=== PATIENT | male | born 1975 | race Caucasian/White ===

== ENCOUNTER 2020-01-08 08:41 | Emergency (ER) | payer BC ==
[2020-01-08] MEDS ORDERED: diphenhydrAMINE 50 MG/ML SDV IVPUSH ONE (08:56)
--- NOTE | 2020-01-08 08:58 | EDM.PDOC ---
<Freddie Mcduffie - Last Filed: 01/08/20 09:40> ED HPI GENERAL MEDICAL PROBLEM - General Chief Complaint: Allergic Reaction Stated Complaint: PT CAME FROM CLINIC Time Seen by Provider: 01/08/20 08:57 - Related Data Allergies Allergy/AdvReac Type Severity Reaction Status Date / Time No Known Allergies Allergy Verified 01/08/20 08:47 Home Meds: Home Meds methylPREDNISolone [Medrol Dose Pack] 4 mg PO DAILY 5 Days #1 dospk 01/08/20 [Rx] Departure - Departure Disposition: Home, Self-Care 01 Clinical Impression: Allergic reaction - Discharge Information Prescriptions: methylPREDNISolone [Medrol Dose Pack] 4 mg PO DAILY 5 Days #1 dospk Instructions: Hives Forms: ED Department Discharge Additional Instructions: Advised to take Benadryl every 6-hours as needed for itch and rash Advised to return to ED if not improving or changes in breathing develop The following information is given to patients seen in the emergency department who are being discharged to home. This information is to outline your options for follow-up care. We provide all patients seen in our emergency department with a follow-up referral. The need for follow-up, as well as the timing and circumstances, are variable depending upon the specifics of your emergency department visit. If you don't have a primary care physician on staff, we will provide you with a referral. We always advise you to contact your personal physician following an emergency department visit to inform them of the circumstance of the visit and for follow-up with them and/or the need for any referrals to a consulting specialist. The emergency department will also refer you to a specialist when appropriate. This referral assures that you have the opportunity for follow-up care with a specialist. All of these measure are taken in an effort to provide you with optimal care, which includes your follow-up. Under all circumstances we always encourage you to contact your private physician who remains a resource for coordinating your care. When calling for follow-up care, please make the office aware that this follow-up is from your recent emergency room visit. If for any reason you are refused follow-up, please contact the [facility] Emergency Department at and asked to speak to the emergency department charge nurse. If you do not have a primary care doctor, please follow up with the clinics below within 3-5 days. [facility] - Primary Care [address] [place] [address] [facility] [address] [place] [id number] <Jeannine Nobles - Last Filed: 01/08/20 09:43> ED HPI GENERAL MEDICAL PROBLEM - General Source of Information: Reports: Patient History Limitations: Reports: No Limitations - History of Present Illness INITIAL COMMENTS - FREE TEXT/NARRATIVE: Patient is a 44-year-old male with no significant past medical history except for allergy to bee stings presenting today with worsening generalized pruritus, swelling of both hands x5 days after having been stung by bee 8 days prior. Patient did take 50 mg of Benadryl yesterday with minimal relief. Denies any problems breathing, chest pain, palpitations. Denies any pain, mentions pruritus minimally improved with Benadryl. Endorses a rash right forearm and right lower back. Patient was stung in the right flank. Denies any retained arthropod pieces. Left significant allergic reaction to bee sting was in his teens. Patient otherwise denies any other significant symptoms and or concerns. Generalized Pain Score (Numeric/FACES): 5 Past Medical History - Past Health History Medical/Surgical History: Denies Medical/Surgical History Cardiovascular History: Reports: None Respiratory History: Reports: None Gastrointestinal History: Reports: None Genitourinary History: Reports: None Neurological History: Reports: None Psychiatric History: Reports: None Endocrine/Metabolic History: Reports: None Hematologic History: Reports: None Immunologic History: Reports: None Oncologic (Cancer) History: Reports: None Dermatologic History: Reports: None - Infectious Disease History Infectious Disease History: Reports: Chicken Pox - Past Surgical History Head Surgeries/Procedures: Reports: None HEENT Surgical History: Reports: Oral Surgery Musculoskeletal Surgical History: Reports: Other (See Below) Other Musculoskeletal Surgeries/Procedures:: R 4th digit sx Social & Family History - Family History Family Medical History: Noncontributory - Tobacco Use Smoking Status *Q: Former Smoker Used Tobacco, but Quit: Yes Month/Year Tobacco Last Used: 2019 - Caffeine Use Caffeine Use: Reports: Coffee - Recreational Drug Use Recreational Drug Use: No - Living Situation & Occupation Living situation: Reports: , with Family Occupation: Employed ED ROS ALLERGIC REACTION - Review of Systems Review Of Systems: See Below Constitutional: Reports: No Symptoms HEENT: Reports: No Symptoms Respiratory: Denies: Shortness of Breath, Cough Cardiovascular: Denies: Chest Pain, Dyspnea on Exertion GI/Abdominal: Reports: No Symptoms. Denies: Constipation, Diarrhea : Reports: No Symptoms Musculoskeletal: Reports: No Symptoms Skin: Reports: Pruritis, Rash, Urticaria Neurological: Reports: No Symptoms. Denies: Confusion, Dizziness, Headache Psychiatric: Reports: No Symptoms Immunologic: Reports: Anaphylaxis ED EXAM GENERAL NO PERIP PULSE - Physical Exam Exam: See Below Exam Limited By: No Limitations General Appearance: Alert, No Apparent Distress Ears: Normal External Exam, Normal Canal, Hearing Grossly Normal Nose: Normal Inspection Throat/Mouth: Normal Inspection, Normal Oropharynx, No Airway Compromise, Other (hypertrophic tonsils; no airway compromise however ) Head: Atraumatic, Normocephalic Neck: Supple, Non-Tender, Full Range of Motion Respiratory/Chest: No Respiratory Distress, Lungs Clear, Normal Breath Sounds, N o Accessory Muscle Use. No: Respiratory Distress Cardiovascular: Regular Rate, Rhythm GI/Abdominal: Soft, Non-Tender Rectal (Males) Exam: Normal Exam Back Exam: Full Range of Motion Extremities: Other (moderate edema right/left hands; FROM ; non-tender...) Neurological: Alert, Oriented, Normal Cognition Psychiatric: Normal Affect, Normal Mood Skin Exam: Other (+uritcarial type rash noted over right forearm, right flank and lower back, posterior legs, buttocks. no rash noted on face. mild redness at base of neck ) Course - Vital Signs Last Recorded V/S: Last Vital Signs Temp 97.4 F 01/08/20 08:45 Pulse 78 01/08/20 09:13 Resp 20 01/08/20 09:13 BP 133/81 01/08/20 09:13 Pulse Ox 95 01/08/20 09:13 - Orders/Labs/Meds Meds: Medications Discontinued Medications Generic Name Dose Route Start Last Admin Trade Name Freq PRN Reason Stop Dose Admin Diphenhydramine HCl 50 mg 01/08/20 08:56 01/08/20 09:09 Benadryl IVPUSH 01/08/20 08:57 50 mg ONETIME ONE Administration Methylprednisolone Sodium Succinate 125 mg 01/08/20 09:00 01/08/20 09:09 Solu-Medrol IVPUSH 01/08/20 09:01 125 mg ONETIME ONE Administration - Re-Assessments/Exams Free Text/Narrative Re-Assessment/Exam: Reassessed at bedside: endorsed improved pruritus. Mentating well, respirating well, no wheezing and or over airway compromise appreciated 01/08/20 09:09 01/08/20 09:10 01/08/20 09:25 Free Text/Narrative Re-Assessment/Exam: Based off of H&P: hx. of allergy to bee stings; no other inciting factor appreciated . no other significant PMH. Breathing and respiratory status appropriate. Vitals stable; o2 sats appropriate No airway compromise appreciated:able to speak in full sentences and A&OX3 Urticarial type lesions noted. No retained FB/arthropod parts visualized 01/08/20 09:14 Departure - Departure Time of Disposition: 09:33 - Discharge Information *PRESCRIPTION DRUG MONITORING PROGRAM REVIEWED*: No *COPY OF PRESCRIPTION DRUG MONITORING REPORT IN PATIENT SYD: No Sepsis Event Note (ED) - Evaluation Sepsis Screening Result: No Definite Risk - Focused Exam Vital Signs: Vital Signs Temp Pulse Resp BP Pulse Ox 01/08/20 09:13 78 20 133/81 95 01/08/20 08:45 97.4 F 92 20 135/81 95
[2020-01-08] MEDS ORDERED: methylPREDNISolone Sodium Succinate 125 MG/2 ML SDV IVPUSH ONE (09:00)
[2020-01-08 09:14] VITALS: BP 133/81; PULSE 78
== END 2020-01-08 09:47 | disposition home or self-care (01) ==
LOC: MW.ED 08:41
DX: L50.0 Allergic urticaria (principal); J35.1 Hypertrophy of tonsils; Z87.891 Personal history of nicotine dependence; Z98.890 Other specified postprocedural states; Z79.899 Other long term (current) drug therapy
CPT/HCPCS: 96374; 96375; 99283; J1200; J2930; 99282

== ENCOUNTER 2023-06-15 09:36 | Emergency (ER) | payer BC ==
[2023-06-15 09:50] VITALS: PULSE 107
[2023-06-15] MEDS ORDERED: Ketorolac 30 MG/ML SDV IVPUSH ONE (10:08)
[2023-06-15] MEDS ORDERED: Sodium Chloride 0.9% 1,000 ML IV ONE (10:08)
[2023-06-15] MEDS ORDERED: Alum Hydro/Mag Hydro/Simeth XS 15 ML, Lidocaine 2% 5 ML PO ONE ×2 (10:08)
[2023-06-15] MEDS ORDERED: Ondansetron 4 MG/2 ML SDV IVPUSH ONE (10:08)
[2023-06-15 10:49] LABS: CORONAVIRUS COVID-19 NAA POSITIVE (NEGATIVE); INFLUENZA A NAA NEGATIVE (NEGATIVE); INFLUENZA B NAA NEGATIVE (NEGATIVE); RESPIRATORY SYNCYTIAL VIR NAA NEGATIVE (NEGATIVE)
[2023-06-15 10:53] LABS: APPEARANCE,URINE CLEAR; BILIRUBIN,URINE NEGATIVE (NEGATIVE); COLOR,URINE YELLOW; GLUCOSE,URINE NEGATIVE (NEGATIVE); KETONES,URINE NEGATIVE (NEGATIVE); LEUKOCYTE ESTERASE,URINE NEGATIVE (NEGATIVE); NITRITE,URINE NEGATIVE (NEGATIVE); OCCULT BLOOD,URINE TRACE-INTACT (NEGATIVE); PROTEIN,URINE TRACE mg/dL (NEGATIVE); UROBILINOGEN,URINE 0.2 EU/dL (<2.0)
[2023-06-15 11:05] LABS: RBC,URINE 0-1 (0-2/HPF); WBC,URINE 0-1 (0-5/HPF)
[2023-06-15 11:06] LABS: BACTERIA,URINE NOT SEEN (NEGATIVE); EPITHELIAL CELLS,URINE RARE (NONE-FEW)
[2023-06-15 11:19] LABS: BASOPHILS ABSOLUTE AUTO 0.02 K/uL (0.00-0.20); BASOPHILS PERCENT AUTO 0.2 % (0.0-1.0); EOSINOPHILS ABSOLUTE AUTO 0.05 K/uL (0.00-0.45); EOSINOPHILS PERCENT AUTO 0.5 % (0.0-6.0); HEMATOCRIT 50.3 % (42.0-52.0); HEMOGLOBIN 16.7 g/dL (14.0-18.0); IMMATURE GRAN ABSOLUTE AUTO 0.02 K/uL (0.00-0.05); IMMATURE GRAN PERCENT AUTO 0.2 % (0.0-0.4); LYMPHOCYTES ABSOLUTE AUTO 0.28 K/uL (1.00-4.80); LYMPHOCYTES PERCENT AUTO 2.6 % (24.0-44.0); MEAN CORPUSCULAR HEMOGLOBIN 29.5 pg (28.0-32.0); MEAN CORPUSCULAR HGB CONC 33.2 g/dL (32.0-36.0); MEAN CORPUSCULAR VOLUME 88.7 fL (83.0-99.0); MEAN PLATELET VOLUME 10.2 fL (9.4-12.4); MONOCYTES ABSOLUTE AUTO 0.65 K/uL (0.00-0.80); MONOCYTES PERCENT AUTO 6.1 % (0.0-8.0); NEUTROPHILS ABSOLUTE AUTO 9.57 K/uL (1.80-7.70); NEUTROPHILS PERCENT AUTO 90.4 % (41.0-71.0); PLATELET COUNT,PLT 218 K/uL (150-400); RED BLOOD CELL COUNT 5.67 M/uL (4.52-5.90); WHITE BLOOD CELL COUNT,WBC 10.59 K/uL (3.9-11.3)
[2023-06-15 11:39] LABS: BILIRUBIN TOTAL 1.1 mg/dL (0.2-1.0); CALCIUM 9.5 mg/dL (8.5-10.1); CARBON DIOXIDE,CO2 27.8 mmol/L (21.0-32.0); CREATININE 1.2 mg/dL (0.8-1.3); EST CRCL DRUG DOSING (CG) 81.73 mL/min; POTASSIUM,K 4.6 mmol/L (3.5-5.1); PROTEIN TOTAL,TP 8.2 g/dL (6.4-8.2)
[2023-06-15 13:00] VITALS: BP 118/50
== END 2023-06-15 12:59 | disposition home or self-care (01) ==
LOC: MW.ED 09:36
DX: U07.1 COVID-19 (principal)
CPT/HCPCS: 0241U; 36415; 80053; 81001; 83690; 85025; 96361; 96374; 96375; 99284; A9270; J1885; J2405; J7030